=== PATIENT | male | born 1955 | race African-American/Black ===

== ENCOUNTER 2019-09-01 01:43 | Emergency (ER) | payer SELFPAY ==
[~2019-09-01] VITALS: Ht 185.4 cm; Wt 90.0 kg
[2019-09-01 02:00] VITALS: BP 165/94
== END 2019-09-01 07:58 | disposition left against medical advice (07) ==
LOC: EDBD 01:43 → ER 01:43
DX: Z53.21 Procedure and treatment not carried out due to patient leaving prior to being seen by health care provider (principal)

== ENCOUNTER 2023-05-02 01:32 | Emergency (ER) | payer MEDICARE, MEDICAID ==
[~2023-05-02] VITALS: Ht 182.9 cm; Wt 80.0 kg
[~2023-05-02 01:32] MED LIST: AMLO10TA80 PO; LEVE750T66 PO; METF-416 PO; OLAN2.5T29 PO
[2023-05-02 01:34] VITALS: O2SAT 98
[2023-05-02] MEDS ORDERED: LEVETIRACETAM 1000MG PREMIX 100 ML IV ONE (01:45)
[2023-05-02 02:30] LABS: BASOPHILS % 0.6 % (0.0-2.0); EOSINOPHILS % 0.7 % (0.0-5.0); HEMOGLOBIN. 11.9 g/dL (14.0-18.0); LYMPHOCYTES % 24.2 % (20.0-50.0); MEAN CORPUSCULAR HEMOGLOBIN 29.7 pg (28.0-32.0); MEAN CORPUSCULAR VOLUME 84.7 fL (80.0-94.0); MEAN PLATELET VOLUME 7.8 fl (7.4-10.4); MONOCYTES % 6.5 % (2.0-8.0); PLATELET 322 x1000/uL (130-400); RED BLOOD CELL COUNT 4.02 mill/uL (4.7-6.1); RED CELL DISTRIBUTION WIDTH 14.8 % (11.6-14.6); WHITE BLOOD COUNT 7.8 x1000/uL (4.5-11.0)
[2023-05-02 02:37] LABS: INDEX HEMOLYSI 1 (1-3)
[2023-05-02 02:40] LABS: AMMONIA 27 uMol/L (<32); CHLORIDE 108 mEq/L (98-107); INDEX HEMOLYSI 1 (1-3); INDEX ICTERIC 1 (1-4); INDEX LIPEMIC 1 (1-3); POTASSIUM 4.2 mEq/L (3.5-5.1); SODIUM 141 mEq/L (136-145)
[2023-05-02 02:47] LABS: ALANINE AMINOTRANSFERASE 14 IU/L (13-61); ALBUMIN 3.9 g/dL (3.4-5.0); ASPARTATE AMINOTRANSFERASE 10 IU/L (15-37); BILIRUBIN TOTAL 0.4 mg/dL (0.1-1.0); CALCIUM 8.4 mg/dL (8.5-10.1); CARBON DIOXIDE 25 mEq/L (21-32); ETHANOL BLOOD < 10 mg/dL (<10); GLUCOSE 153 mg/dL (70-105); PROTEIN TOTAL 7.1 g/dL (6.0-8.3); UREA NITROGEN BLOOD 17 mg/dL (7-21)
[2023-05-02 11:15] VITALS: BP 135/86; PULSE 98; RESP 18; TEMP 98.4
== END 2023-05-02 11:16 ==
LOC: ER 01:32
DX: G40.509 Epileptic seizures related to external causes, not intractable, without status epilepticus (principal); I10 Essential (primary) hypertension; E11.9 Type 2 diabetes mellitus without complications; Z98.890 Other specified postprocedural states; Z00.00 Encounter for general adult medical examination without abnormal findings
CPT/HCPCS: 80053; 80320; 82140; 85025; 36415; 71045; 70450; 96365; 96366; 99285; J1953; G0480

== ENCOUNTER 2023-05-11 17:21 | Emergency (ER) | payer MEDICARE, MEDICAID ==
[~2023-05-11] VITALS: Ht 182.9 cm; Wt 90.0 kg
[2023-05-11 17:23] VITALS: TEMP 98.6; O2SAT 99
[2023-05-12 15:06] VITALS: BP 142/78; PULSE 82; RESP 16
== END 2023-05-12 15:06 | disposition home or self-care (01) ==
LOC: ER 17:21
DX: S01.81XA Laceration without foreign body of other part of head, initial encounter (principal); F20.9 Schizophrenia, unspecified; X58.XXXA Exposure to other specified factors, initial encounter; Y93.89 Activity, other specified; Y92.89 Other specified places as the place of occurrence of the external cause; Y99.8 Other external cause status
CPT/HCPCS: 12011; 99284

== ENCOUNTER 2024-03-04 06:20 | Emergency (ER) | payer MEDICARE, MEDICAID ==
[~2024-03-04] VITALS: Ht 177.8 cm; Wt 77.0 kg
[~2024-03-04 06:20] MED LIST changes: +FERR325T6 MT; +INSU100V40; +LEVE500T19 MT; -LEVE750T66 PO; +METH-372 MT; +TOPUD PO
[2024-03-04 06:21] VITALS: O2SAT 94
[2024-03-04 07:08] LABS: BASOPHILS % 0.4 % (0.0-2.0); EOSINOPHILS % 0.1 % (0.0-5.0); HEMATOCRIT. 40.4 % (42.0-52.0); HEMOGLOBIN. 13.8 g/dL (14.0-18.0); LYMPHOCYTES % 10.5 % (20.0-50.0); MEAN CORPUSCULAR HEMOGLOBIN 29.4 pg (28.0-32.0); MEAN CORPUSCULAR HGB CONC 34.2 g/dL (31.0-37.0); MEAN CORPUSCULAR VOLUME 86.1 fL (80.0-94.0); MONOCYTES % 4.3 % (2.0-8.0); NEUTROPHILS % 84.7 % (40.0-76.0); PLATELET 296 x1000/uL (130-400); RED BLOOD CELL COUNT 4.69 mill/uL (4.7-6.1); RED CELL DISTRIBUTION WIDTH 15.4 % (11.6-14.6); WHITE BLOOD COUNT 9.4 x1000/uL (4.5-11.0)
[2024-03-04 07:12] LABS: CHLORIDE 106 mEq/L (98-107); POTASSIUM 4.4 mEq/L (3.5-5.1); SODIUM 140 mEq/L (136-145)
[2024-03-04 07:13] LABS: CALCIUM 9.4 mg/dL (8.7-10.4); CARBON DIOXIDE 29 mEq/L (21-32)
[2024-03-04 07:18] LABS: GLUCOSE 170 mg/dL (70-105); TROPONIN I HIGH SENSITIVITY 16 ng/L (3.0-53); UREA NITROGEN BLOOD 15 mg/dL (9-23)
[2024-03-04] MEDS: LEVETIRACETAM 500MG PREMIX 100 ML IV ONE (07:21)
[2024-03-04] MEDS: LORAZEPAM 2MG/ML INJ IV ONE (07:42)
[2024-03-04 09:07] LABS: TROPONIN I HIGH SENSITIVITY 27 ng/L (3.0-53)
[2024-03-04] MEDS ORDERED: LEVE500T19 MT (12:44)
[2024-03-04 17:45] VITALS: BP 144/85; PULSE 90; RESP 15; TEMP 37.05852; O2SAT 98
== END 2024-03-04 17:56 ==
LOC: ER 06:20
DX: G40.909 Epilepsy, unspecified, not intractable, without status epilepticus (principal); J44.9 Chronic obstructive pulmonary disease, unspecified; E11.9 Type 2 diabetes mellitus without complications; I10 Essential (primary) hypertension; F20.9 Schizophrenia, unspecified; Z86.73 Personal history of transient ischemic attack (TIA), and cerebral infarction without residual deficits; Z79.899 Other long term (current) drug therapy
CPT/HCPCS: 99285; 96374; 70450; 71045; 80048; 83880; 85025; 84484; 36415; 93005; 82542; J1953; J2060

== ENCOUNTER 2024-09-19 06:42 | Inpatient (IN) | payer MEDICARE, MEDICAID ==
[~2024-09-19] VITALS: Ht 182.9 cm; Wt 90.3 kg
[~2024-09-19 06:42] MED LIST changes: -OLAN2.5T29 PO; +OLAN2.5T77 PO
[2024-09-19] MEDS: LEVETIRACETAM 500MG PREMIX 100 ML IV ONE ×2 (07:31→07:52)
[2024-09-19 08:07] LABS: BASOPHILS % 0.5 % (0.0-2.0); EOSINOPHILS % 2.1 % (0.0-5.0); HEMATOCRIT. 41.2 % (42.0-52.0); HEMOGLOBIN. 13.8 g/dL (14.0-18.0); LYMPHOCYTES % 22.6 % (20.0-50.0); MEAN CORPUSCULAR HEMOGLOBIN 28.4 pg (28.0-32.0); MEAN CORPUSCULAR HGB CONC 33.5 g/dL (31.0-37.0); MEAN CORPUSCULAR VOLUME 84.6 fL (80.0-94.0); MEAN PLATELET VOLUME 8.1 fl (7.4-10.4); MONOCYTES % 4.9 % (2.0-8.0); NEUTROPHILS % 69.9 % (40.0-76.0); PLATELET 278 x1000/uL (130-400); RED BLOOD CELL COUNT 4.87 mill/uL (4.7-6.1); RED CELL DISTRIBUTION WIDTH 14.8 % (11.6-14.6)
[2024-09-19 08:30] LABS: CHLORIDE 106 mEq/L (98-107); POTASSIUM 4.2 mEq/L (3.5-5.1); SODIUM 140 mEq/L (136-145)
[2024-09-19 08:31] LABS: CALCIUM 8.9 mg/dL (8.7-10.4); CARBON DIOXIDE 24 mEq/L (21-32)
[2024-09-19 08:36] LABS: CREATININE 1.1 mg/dL (0.6-1.3); GLUCOSE 175 mg/dL (70-105); UREA NITROGEN BLOOD 18 mg/dL (9-23)
[2024-09-19 08:38] LABS: ALANINE AMINOTRANSFERASE 12 IU/L (10-49); ASPARTATE AMINOTRANSFERASE 17 IU/L (<34); BILIRUBIN TOTAL 0.5 mg/dL (0.1-1.0); PROTEIN TOTAL 7.3 g/dL (6.0-8.3)
[2024-09-19 10:00] VITALS: BP 170/87; PULSE 93; RESP 18; TEMP 36.5
[2024-09-19] MEDS: LORAZEPAM 2MG/ML INJ IV NR (11:24)
[2024-09-19] MEDS ORDERED: NALOXONE HCL 0.4MG/ML VIAL IV PRN (11:45)
[2024-09-19] MEDS ORDERED: CLONIDINE 0.1MG TABLET PO PRN (11:45)
[2024-09-19] MEDS ORDERED: DEXTROSE 50% WATER 50ML SYRINGE IV PRN (11:45)
[2024-09-19] MEDS ORDERED: ACETAMINOPHEN 325MG TABLET PO PRN (11:45)
[2024-09-19] MEDS ORDERED: HYDROCODONE/ACETAMINOPHEN 5/325MG TABLET PO PRN (11:45)
[2024-09-19] MEDS ORDERED: ONDANSETRON HCL 4MG/2ML INJ IV PRN (11:45)
[2024-09-19] MEDS: METHIMAZOLE 5MG TABLET PO SCH (11:45)
[2024-09-19] MEDS: ENOXAPARIN 40MG/0.4ML SYR SUBCUT SCH (12:00)
[2024-09-19] MEDS: BLOOD SUGAR DIAGNOSTIC STRIP TEST SCH (12:40)
[2024-09-19] MEDS: INSULIN LISPRO 100 UNITS/ML SUBCUT SCH (13:10)
[2024-09-19 20:00] VITALS: BP 122/63; PULSE 85; RESP 20; TEMP 37.2; O2SAT 100
[2024-09-19] MEDS: LEVETIRACETAM 500MG TABLET PO SCH (22:20)
[2024-09-19] MEDS: METOPROLOL TARTRATE 25MG TABLET PO SCH (22:21)
[2024-09-19] MEDS: OLANZAPINE 2.5MG TABLET PO SCH (22:21)
[2024-09-20] VITALS: BP 146/73; PULSE 80; RESP 20; TEMP 36.9; O2SAT 100
[2024-09-20] MEDS: LORAZEPAM 2MG/ML INJ IV PRN (02:07)
[2024-09-20 04:00] VITALS: BP 142/78; PULSE 68; RESP 20; TEMP 36.6; O2SAT 100
[2024-09-20 06:53] LABS: CARBON DIOXIDE 25 mEq/L (21-32); CHLORIDE 107 mEq/L (98-107); POTASSIUM 3.8 mEq/L (3.5-5.1); SODIUM 141 mEq/L (136-145)
[2024-09-20 06:55] LABS: BASOPHILS % 0.8 % (0.0-2.0); EOSINOPHILS % 2.1 % (0.0-5.0); HEMATOCRIT. 37.2 % (42.0-52.0); HEMOGLOBIN. 12.8 g/dL (14.0-18.0); LYMPHOCYTES % 30.6 % (20.0-50.0); MEAN CORPUSCULAR HEMOGLOBIN 28.6 pg (28.0-32.0); MEAN CORPUSCULAR HGB CONC 34.4 g/dL (31.0-37.0); MEAN PLATELET VOLUME 8.2 fl (7.4-10.4); MONOCYTES % 8.4 % (2.0-8.0); NEUTROPHILS % 58.1 % (40.0-76.0); PLATELET 257 x1000/uL (130-400); RED BLOOD CELL COUNT 4.48 mill/uL (4.7-6.1); RED CELL DISTRIBUTION WIDTH 14.8 % (11.6-14.6); WHITE BLOOD COUNT 8.2 x1000/uL (4.5-11.0)
[2024-09-20 06:59] LABS: CREATININE 1.2 mg/dL (0.6-1.3); GLUCOSE 105 mg/dL (70-105); UREA NITROGEN BLOOD 22 mg/dL (9-23)
[2024-09-20] MEDS: AMLODIPINE 10MG TABLET PO SCH (10:50)
[2024-09-20] MEDS: PANTOPRAZOLE SODIUM 40 MG/VIAL IV SCH (10:51)
[2024-09-20 12:00] VITALS: BP 139/78; PULSE 78; RESP 20; TEMP 36.5; O2SAT 100
[2024-09-20 16:00] VITALS: BP 130/67; PULSE 81; RESP 18; TEMP 36.6; O2SAT 100
[2024-09-20 20:00] VITALS: BP 107/51; PULSE 72; RESP 20; TEMP 36.1; O2SAT 98
[2024-09-21 08:00] VITALS: BP 172/86; PULSE 114; RESP 16; TEMP 36; O2SAT 97
[2024-09-21 08:51] LABS: BASOPHILS % 1.1 % (0.0-2.0); HEMATOCRIT. 39.3 % (42.0-52.0); HEMOGLOBIN. 13.3 g/dL (14.0-18.0); LYMPHOCYTES % 37.9 % (20.0-50.0); MEAN CORPUSCULAR HEMOGLOBIN 28.6 pg (28.0-32.0); MEAN CORPUSCULAR HGB CONC 33.7 g/dL (31.0-37.0); MEAN CORPUSCULAR VOLUME 84.9 fL (80.0-94.0); PLATELET 260 x1000/uL (130-400); RED BLOOD CELL COUNT 4.63 mill/uL (4.7-6.1); RED CELL DISTRIBUTION WIDTH 14.8 % (11.6-14.6); WHITE BLOOD COUNT 5.2 x1000/uL (4.5-11.0)
[2024-09-21 08:57] LABS: CARBON DIOXIDE 26 mEq/L (21-32); CHLORIDE 108 mEq/L (98-107); POTASSIUM 4.1 mEq/L (3.5-5.1); SODIUM 142 mEq/L (136-145)
[2024-09-21 08:58] LABS: CALCIUM 9.1 mg/dL (8.7-10.4)
[2024-09-21 09:02] LABS: CREATININE 1.1 mg/dL (0.6-1.3)
[2024-09-21 09:03] LABS: GLUCOSE 152 mg/dL (70-105); UREA NITROGEN BLOOD 20 mg/dL (9-23)
[2024-09-21 12:00] VITALS: BP 153/81; PULSE 105; RESP 18; TEMP 36.4; O2SAT 98
[2024-09-21 16:00] VITALS: BP 138/74; PULSE 90; RESP 17; TEMP 36.3; O2SAT 98
[2024-09-22] VITALS: BP 124/71; PULSE 72; RESP 19; TEMP 36.2; O2SAT 97
[2024-09-22 04:00] VITALS: BP 128/68; PULSE 66; RESP 20; TEMP 36.2; O2SAT 96
[2024-09-22 08:14] VITALS: BP 86/52; PULSE 69; RESP 19; TEMP 36.7; O2SAT 99
[2024-09-22 09:57] LABS: BASOPHILS % 0.5 % (0.0-2.0); EOSINOPHILS % 6.3 % (0.0-5.0); HEMATOCRIT. 38.6 % (42.0-52.0); LYMPHOCYTES % 33.5 % (20.0-50.0); MEAN CORPUSCULAR HEMOGLOBIN 28.2 pg (28.0-32.0); MEAN CORPUSCULAR HGB CONC 33.7 g/dL (31.0-37.0); MEAN CORPUSCULAR VOLUME 83.6 fL (80.0-94.0); MEAN PLATELET VOLUME 8.1 fl (7.4-10.4); MONOCYTES % 8.8 % (2.0-8.0); NEUTROPHILS % 50.9 % (40.0-76.0); PLATELET 265 x1000/uL (130-400); RED BLOOD CELL COUNT 4.62 mill/uL (4.7-6.1); RED CELL DISTRIBUTION WIDTH 14.6 % (11.6-14.6)
[2024-09-22 10:09] LABS: CARBON DIOXIDE 28 mEq/L (21-32); CHLORIDE 107 mEq/L (98-107); POTASSIUM 4.1 mEq/L (3.5-5.1); SODIUM 143 mEq/L (136-145)
[2024-09-22 10:10] LABS: CALCIUM 9.2 mg/dL (8.7-10.4)
[2024-09-22 10:15] LABS: CREATININE 1.2 mg/dL (0.6-1.3); GLUCOSE 124 mg/dL (70-105); UREA NITROGEN BLOOD 24 mg/dL (9-23)
[2024-09-22 12:04] VITALS: BP 136/77; PULSE 69; RESP 19; TEMP 36.4; O2SAT 99
[2024-09-22] MEDS ORDERED: METO25TA6 PO (14:36)
[2024-09-22 16:05] VITALS: BP 155/77; PULSE 78; RESP 18; TEMP 36.3; O2SAT 99
[2024-09-22 16:42] VITALS: BP 136/68; PULSE 78; TEMP 97.6; O2SAT 98
[2024-09-22] MEDS ORDERED: METOPROLOL TARTRATE 25MG TABLET PO SCH (21:00)
== END 2024-09-22 19:18 | DRG 100 ==
LOC: ER 06:42 → 7WST 08:33 → EDBEDREQTM 08:34 → EDBEDREQ 08:34
PROVIDERS: ADMIT Internal Medicine; ATTEND Internal Medicine
DX: G40.89 Other seizures (principal); G92.8 Other toxic encephalopathy; E78.5 Hyperlipidemia, unspecified; E11.9 Type 2 diabetes mellitus without complications; I10 Essential (primary) hypertension; E03.9 Hypothyroidism, unspecified; R45.1 Restlessness and agitation; F03.90 Unspecified dementia, unspecified severity, without behavioral disturbance, psychotic disturbance, mood disturbance, and anxiety; Z82.49 Family history of ischemic heart disease and other diseases of the circulatory system
CPT/HCPCS: 36415; 80048; 80053; 82962; 83036; 85025; 93005; 93306; 93970; 99285; J1650; J1815; J1953; J2060; J2470

== ENCOUNTER 2025-03-14 20:54 | Emergency (ER) | payer MEDICARE, MEDICAID ==
[~2025-03-14] VITALS: Ht 182.9 cm; Wt 95.0 kg
[~2025-03-14 20:54] MED LIST changes: +METO25TA6 PO
[2025-03-14 21:14] VITALS: TEMP 36.9; O2SAT 99
[2025-03-14 21:56] VITALS: BP 165/85; PULSE 77; RESP 16; O2SAT 100
[2025-03-14 23:56] LABS: BASOPHILS % 0.5 % (0.0-2.0); EOSINOPHILS % 3.0 % (0.0-5.0); HEMATOCRIT. 28.6 % (42.0-52.0); HEMOGLOBIN. 9.2 g/dL (14.0-18.0); LYMPHOCYTES % 24.2 % (20.0-50.0); MEAN PLATELET VOLUME 6.6 fl (7.4-10.4); MONOCYTES % 14.3 % (2.0-8.0); NEUTROPHILS % 58.0 % (40.0-76.0); PLATELET 321 x1000/uL (130-400); RED BLOOD CELL COUNT 3.57 mill/uL (4.7-6.1); RED CELL DISTRIBUTION WIDTH 17.0 % (11.6-14.6)
[2025-03-15 00:04] LABS: CREATININE 1.3 mg/dL (0.6-1.3); UREA NITROGEN BLOOD 13 mg/dL (9-23)
[2025-03-15 00:05] LABS: TROPONIN I HIGH SENSITIVITY 9 ng/L (3.0-53)
== END 2025-03-15 03:40 ==
LOC: ER 20:54
DX: R56.9 Unspecified convulsions (principal); G93.40 Encephalopathy, unspecified; F03.93 Unspecified dementia, unspecified severity, with mood disturbance; F20.9 Schizophrenia, unspecified; E11.9 Type 2 diabetes mellitus without complications; I11.9 Hypertensive heart disease without heart failure; F31.9 Bipolar disorder, unspecified; Z79.84 Long term (current) use of oral hypoglycemic drugs; W19.XXXA Unspecified fall, initial encounter; Y93.89 Activity, other specified; Y92.89 Other specified places as the place of occurrence of the external cause; Y99.8 Other external cause status
CPT/HCPCS: 36415; 71045; 72170; 80048; 84484; 85025; 93005; 99291; A4606

== ENCOUNTER 2025-05-12 08:26 | Inpatient (IN) | payer MEDICARE, MEDICAID ==
[~2025-05-12] VITALS: Ht 182.9 cm; Wt 99.8 kg
[2025-05-12] MEDS ORDERED: CEFTRIAXONE 1GM/50ML 50 ML IV ONE (08:45)
[2025-05-12] MEDS: SODIUM CHLORIDE 0.9% (SEPSIS BOLUS) IV ONE (09:11)
[2025-05-12] MEDS ORDERED: PIPERACILLIN/TAZO 3.375G/50ML 50 ML IV ONE (09:13)
[2025-05-12] MEDS: VANCOMYCIN 1G PREMIX 200 ML IV ONE (09:18)
[2025-05-12] MEDS: VANCOMYCIN 1G PREMIX 200 ML IV SCH ×2 (09:19→22:43)
[2025-05-12] MEDS: ACETAMINOPHEN 1000MG/100ML 100 ML IV ONE (09:31)
[2025-05-12 09:59] LABS: HEMATOCRIT. 25.2 % (42.0-52.0); HEMOGLOBIN. 7.9 g/dL (14.0-18.0); MEAN PLATELET VOLUME 8.5 fl (7.4-10.4); PLATELET 531 x1000/uL (130-400); RED BLOOD CELL COUNT 3.35 mill/uL (4.7-6.1); RED CELL DISTRIBUTION WIDTH 19.1 % (11.6-14.6)
[2025-05-12 10:12] LABS: INR 1.3
[2025-05-12 10:18] LABS: TROPONIN I HIGH SENSITIVITY 32 ng/L (3.0-53); UREA NITROGEN BLOOD 76 mg/dL (9-23)
[2025-05-12 10:20] LABS: ASPARTATE AMINOTRANSFERASE 24 IU/L (<34); BILIRUBIN DIRECT 1.0 mg/dL (<=3.0); BILIRUBIN TOTAL 1.3 mg/dL (0.1-1.0); PROTEIN TOTAL 7.9 g/dL (6.0-8.3)
[2025-05-12] MEDS ORDERED: IPRATROPIUM/ALBUTEROL 0.5-3(2.5)MG/3ML NEB HHN PRN (10:30)
[2025-05-12] MEDS ORDERED: POTASSIUM CHLORIDE 40 MEQ in DEXT 5% WATER 230 ML IV ONE (10:30)
[2025-05-12] MEDS ORDERED: ACETAMINOPHEN 325MG TABLET PO PRN (10:30)
[2025-05-12] MEDS ORDERED: SODIUM CHLORIDE 0.9% 1,000 ML IV SCH (10:30)
[2025-05-12] MEDS ORDERED: ONDANSETRON HCL 4MG/2ML INJ IV PRN (10:30)
[2025-05-12 10:38] LABS: CREATININE 2.3 mg/dL (0.6-1.3)
[2025-05-12] MEDS ORDERED: LEVETIRACETAM 500MG TABLET PO SCH (11:00)
[2025-05-12] MEDS ORDERED: AMLODIPINE 10MG TABLET PO SCH (11:00)
[2025-05-12] MEDS ORDERED: SODIUM CHLORIDE 0.45% 1,000 ML IV NR (11:00)
[2025-05-12] MEDS: PIPERACILLIN/TAZO 3.375G/50ML 50 ML IV SCH ×2 (11:36→22:02)
[2025-05-12] MEDS: KCL 20MEQ/100ML X 2 FOR TOTAL KCL 40MEQ/200ML IV SCH (11:37)
[2025-05-12 11:41] LABS: TROPONIN I HIGH SENSITIVITY 29 ng/L (3.0-53)
[2025-05-12 12:13] LABS: BG BASE EXCESS -3.2 mmol/L (-2.0-3.0); BG CARBOXYHEMOGLOBIN 0.5 % (0.5-1.5); BG DEOXYHEMOGLOBIN 6.1 % (0.0-5.0); BG FRACTION INSPIRED OXYGEN 21; BG HCO3 ACT 20.5 mmol/L (21.0-28.0); BG METHEMOGLOBIN 0.3 % (0.5-1.5); BG OXYGEN SATURATION 93.9 % (94.0-98.0); BG OXYHEMOGLOBIN 93.1 % (94.0-98.0); BG PCO2 31.1 mmHg (35.0-48.0); BG PH 7.436 (7.350-7.450); BG PO2 73.3 mmHg (83.0-108.0); BG SAMPLE SITE LEFT RADIAL; BG TOTAL HEMOGLOBIN 8.0 g/dL (13.5-17.5); BG VENT MODE ROOM AIR
[2025-05-12] MEDS ORDERED: LORAZEPAM 1MG TABLET PO PRN (13:00)
[2025-05-12] MEDS ORDERED: PIPERACILLIN/TAZO 3.375G/50ML 50 ML IV SCH (14:00)
[2025-05-12] MEDS ORDERED: CLINDAMYCIN 300 MG in DEXTROSE 5% WATER 50 ML IV SCH (14:00)
[2025-05-12] MEDS: LEVETIRACETAM 1000MG PREMIX 100 ML IV SCH (16:06)
[2025-05-12] MEDS: CLINDAMYCIN 600MG PREMIX 50 ML IV SCH (16:06)
[2025-05-12] MEDS: DEXT 5%/0.9% NACL 1,000 ML IV SCH (16:09)
[2025-05-12] MEDS: PANTOPRAZOLE SODIUM 40 MG/VIAL IV SCH (16:09)
[2025-05-12] MEDS: ENOXAPARIN 30MG/0.3ML SYR SUBCUT SCH (16:09)
[2025-05-12 17:40] LABS: CREATININE 2.1 mg/dL (0.6-1.3); UREA NITROGEN BLOOD 74 mg/dL (9-23)
[2025-05-12 17:41] LABS: TROPONIN I HIGH SENSITIVITY 24 ng/L (3.0-53)
[2025-05-12 18:06] LABS: C REACTIVE PROTEIN HIGH SENS > 200.00 mg/l (<1.00)
[2025-05-12 20:00] VITALS: BP_SYST 100; BP_SYST 139; BP_DIAS 73; BP_DIAS 78; PULSE 90; PULSE 98; RESP 18; TEMP 36.418; TEMP 36.5; O2SAT 98
[2025-05-12] MEDS: DEXT 5%/0.45% NACL 1000ML 1,000 ML IV SCH (20:54)
[2025-05-12] MEDS: BLOOD SUGAR DIAGNOSTIC STRIP TEST SCH (20:54)
[2025-05-12] MEDS ORDERED: LEVETIRACETAM 1,000MG in NACL 100ML PREMIX IV SCH (21:00)
[2025-05-12] MEDS ORDERED: VANCOMYCIN 500MG PREMIX 100 ML IV SCH (21:00)
[2025-05-12] MEDS ORDERED: METOPROLOL TARTRATE 25MG TABLET PO SCH (21:00)
[2025-05-12] MEDS ORDERED: OLANZAPINE 2.5MG TABLET PO SCH (21:00)
[2025-05-12] MEDS: INSULIN LISPRO 100 UNITS/ML SUBCUT SCH (21:07)
[2025-05-12 21:34] LABS: BAND% 4.0 % (1.0-6.0); LYMPHOCYTES % MANUAL 4.0 % (20.0-50.0); MONOCYTES % MANUAL 2.0 % (2.0-8.0); MYELOCYTES % 1.0 % (0-0); NEUTROPHILS % MANUAL 89.0 % (45.0-75.0); PLATELET ESTIMATE MARKEDLY INCREASED
[2025-05-12] MEDS: SODIUM HYPOCHLORITE 0.125% 473ML SOLUTION TOP SCH (22:42)
[2025-05-12 23:45] LABS: CLARITY URINE CLOUDY (CLEAR); COLOR URINE DARK YELLOW (YELLOW); GLUCOSE URINE NEGATIVE (NEGATIVE); KETONES URINE TRACE (NEGATIVE); LEUKOCYTE ESTERASE URINE NEGATIVE (NEGATIVE); NITRITE URINE NEGATIVE (NEGATIVE); OCCULT BLOOD URINE 2+ (NEGATIVE); PH URINE 5.0 (4.5-8.0); PROTEIN URINE 2+ (NEGATIVE); SPECIFIC GRAVITY URINE 1.021 (1.005-1.030); UROBILINOGEN URINE 2.0 E.U./dL (0.2-1.0)
[2025-05-12 23:49] LABS: TROPONIN I HIGH SENSITIVITY 18 ng/L (3.0-53)
[2025-05-13] VITALS: BP 98/52; PULSE 75; RESP 18; TEMP 36.7; O2SAT 97
[2025-05-13 00:01] LABS: *AMPHETAMINES SCREEN URINE NEGATIVE (NEGATIVE); *BARBITURATES SCREEN URINE NEGATIVE (NEGATIVE); *BENZODIAZEPINES SCREEN URINE NEGATIVE (NEGATIVE); *COCAINE SCREEN URINE NEGATIVE (NEGATIVE); CANNABINOID URINE SCREEN NEGATIVE (NEGATIVE); ECSTASY MDMA SCREEN URINE NEGATIVE (NEGATIVE); METHADONE URINE SCREEN NEGATIVE (NEGATIVE); OPIATES URINE SCREEN NEGATIVE (NEGATIVE); PHENCYCLIDINE URINE SCREEN NEGATIVE (NEGATIVE)
[2025-05-13 00:57] LABS: BACTERIA URINE 1+; SQUAMOUS EPITHELIAL CELL URINE 1+ /lpf (RARE/1+); WBC URINE 0-2 /hpf (0-2)
[2025-05-13 00:58] LABS: AMORPHOUS SEDIMENT URINE 2+ /lpf
[2025-05-13 04:00] VITALS: BP 119/65; PULSE 82; RESP 18; TEMP 36.9; O2SAT 100
[2025-05-13 04:01] LABS: HEMATOCRIT. 24.1 % (42.0-52.0); HEMOGLOBIN. 7.4 g/dL (14.0-18.0); MEAN PLATELET VOLUME 9.1 fl (7.4-10.4); PLATELET 406 x1000/uL (130-400); RED BLOOD CELL COUNT 3.08 mill/uL (4.7-6.1); RED CELL DISTRIBUTION WIDTH 19.3 % (11.6-14.6)
[2025-05-13 04:12] LABS: INR 1.4
[2025-05-13 04:17] LABS: CREATININE 2.0 mg/dL (0.6-1.3)
[2025-05-13 04:18] LABS: UREA NITROGEN BLOOD 53 mg/dL (9-23)
[2025-05-13 04:20] LABS: PHOSPHORUS 4.1 mg/dL (2.5-4.9)
[2025-05-13 05:16] LABS: LYMPHOCYTES % MANUAL 8.0 % (20.0-50.0); MONOCYTES % MANUAL 4.0 % (2.0-8.0); NEUTROPHILS % MANUAL 88.0 % (45.0-75.0); PLATELET ESTIMATE NORMAL
[2025-05-13 08:00] VITALS: BP 139/86; PULSE 91; RESP 18; TEMP 36.3; O2SAT 100
[2025-05-13] MEDS ORDERED: PIPERACILLIN/TAZO 3.375G/50ML 50 ML IV SCH (09:00)
[2025-05-13 12:00] VITALS: BP 129/87; PULSE 86; RESP 18; TEMP 36.3; O2SAT 95
[2025-05-13 16:00] VITALS: BP 129/69; PULSE 87; RESP 18; TEMP 36.3; O2SAT 95
[2025-05-13 20:00] VITALS: BP 126/62; PULSE 85; RESP 18; TEMP 36.9; O2SAT 98
[2025-05-14] VITALS (11 sets, daily range): BP systolic 125–173; BP diastolic 62–81; PULSE 54–90; RESP 16–20; TEMP 35.78064–37; O2SAT 92–100
[2025-05-14 06:48] LABS: CREATININE 1.9 mg/dL (0.6-1.3); UREA NITROGEN BLOOD 69.0 mg/dL (9-23)
[2025-05-14] MEDS: VANCOMYCIN 1GM PMX (XELLIA) 200 ML IV SCH (11:16)
[2025-05-14] MEDS: DEXTROSE 5% WATER 1,000 ML IV SCH (11:22)
[2025-05-14] MEDS ORDERED: LIDOCAINE HCL/EPINEPHRINE 1%-EPI 1:100,000 20ML VIAL ONE (14:27)
[2025-05-14] MEDS ORDERED: POLYMYXIN B SULFATE 500000 UNITS/VIAL ONE (14:27)
[2025-05-14] MEDS ORDERED: BUPIVACAINE HCL/PF 0.5% (5MG/ML) 10ML ONE (14:28)
[2025-05-14 15:57] LABS: HEMATOCRIT. 26.5 % (42.0-52.0); HEMOGLOBIN. 8.2 g/dL (14.0-18.0); MEAN PLATELET VOLUME 8.8 fl (7.4-10.4); PLATELET 483 x1000/uL (130-400); RED BLOOD CELL COUNT 3.41 mill/uL (4.7-6.1); RED CELL DISTRIBUTION WIDTH 20.8 % (11.6-14.6)
[2025-05-14 16:14] LABS: CREATININE 1.8 mg/dL (0.6-1.3)
[2025-05-14 16:15] LABS: UREA NITROGEN BLOOD 61.0 mg/dL (9-23)
[2025-05-14 16:41] LABS: BAND% 3.0 % (1.0-6.0); EOSINOPHILS % MANUAL 1.0 % (0.0-5.0); LYMPHOCYTES % MANUAL 3.0 % (20.0-50.0); MONOCYTES % MANUAL 4.0 % (2.0-8.0); NEUTROPHILS % MANUAL 89.0 % (45.0-75.0); PLATELET ESTIMATE INCREASED
[2025-05-14] MEDS ORDERED: ONDANSETRON HCL 4MG/2ML INJ ONE (18:05)
[2025-05-14] MEDS ORDERED: PROPOFOL 200MG/20ML VIAL IV ONE (18:05)
[2025-05-14] MEDS ORDERED: DEXAMETHASONE 4MG/ML 1ML VIAL ONE (18:05)
[2025-05-14] MEDS ORDERED: FENTANYL CITRATE/PF 50MCG/ML 2ML VIAL ONE (18:06)
[2025-05-14] MEDS ORDERED: ONDANSETRON HCL 4MG/2ML INJ IV PRN (18:30)
[2025-05-14] MEDS ORDERED: LABETALOL 5MG/ML 4ML INJ IV PRN (18:30)
[2025-05-14] MEDS ORDERED: HYDRALAZINE 20MG/ML VIAL IV PRN (18:30)
[2025-05-14] MEDS ORDERED: HYDROMORPHONE HCL/PF 1MG/ML INJ IV PRN (18:30)
[2025-05-14] MEDS ORDERED: FENTANYL CITRATE/PF 50MCG/ML 2ML VIAL IV PRN (18:30)
[2025-05-14] MEDS ORDERED: ALBUTEROL (0.5%) 2.5MG/0.5ML NEB HHN NR (18:30)
[2025-05-14] MEDS ORDERED: PHENYLEPHRINE HCL 10MG/ML 1ML IV ONE (19:41)
[2025-05-15] VITALS (7 sets, daily range): BP systolic 124–150; BP diastolic 65–72; PULSE 72–105; RESP 17–20; TEMP 36.3–36.6; O2SAT 97–100
[2025-05-15] MEDS: HYDROMORPHONE HCL/PF 1MG/ML INJ IV PRN (06:37)
[2025-05-15 16:38] LABS: HEMATOCRIT. 25.3 % (42.0-52.0); HEMOGLOBIN. 7.9 g/dL (14.0-18.0); MEAN PLATELET VOLUME 8.7 fl (7.4-10.4); PLATELET 417 x1000/uL (130-400); RED BLOOD CELL COUNT 3.25 mill/uL (4.7-6.1); RED CELL DISTRIBUTION WIDTH 20.7 % (11.6-14.6)
[2025-05-15] MEDS: IPRATROPIUM/ALBUTEROL 0.5-3(2.5)MG/3ML NEB HHN SCH (21:22)
[2025-05-15 23:40] LABS: BAND% 2.0 % (1.0-6.0); EOSINOPHILS % MANUAL 1.0 % (0.0-5.0); LYMPHOCYTES % MANUAL 7.0 % (20.0-50.0); MONOCYTES % MANUAL 6.0 % (2.0-8.0); NEUTROPHILS % MANUAL 84.0 % (45.0-75.0); PLATELET ESTIMATE INCREASED
[2025-05-16] VITALS (10 sets, daily range): BP systolic 133–172; BP diastolic 69–97; PULSE 78–120; RESP 15–22; TEMP 36.6–37; O2SAT 98
[2025-05-16] MEDS: INSULIN GLARGINE 100 UNITS/ML SUBCUT SCH (23:08)
[2025-05-17] VITALS (9 sets, daily range): BP systolic 138–166; BP diastolic 75–97; PULSE 87–106; RESP 14–20; TEMP 36.5–36.7; O2SAT 95–100
[2025-05-17 06:15] LABS: HEMATOCRIT. 28.0 % (42.0-52.0); HEMOGLOBIN. 9.1 g/dL (14.0-18.0); MEAN PLATELET VOLUME 8.6 fl (7.4-10.4); PLATELET 430 x1000/uL (130-400); RED BLOOD CELL COUNT 3.63 mill/uL (4.7-6.1); RED CELL DISTRIBUTION WIDTH 21.2 % (11.6-14.6)
[2025-05-17 06:16] LABS: CREATININE 1.7 mg/dL (0.6-1.3); UREA NITROGEN BLOOD 40.0 mg/dL (9-23)
[2025-05-17 22:34] LABS: BAND% 3.0 % (1.0-6.0); LYMPHOCYTES % MANUAL 10.0 % (20.0-50.0); MONOCYTES % MANUAL 6.0 % (2.0-8.0); NEUTROPHILS % MANUAL 81.0 % (45.0-75.0); PLATELET ESTIMATE NORMAL
[2025-05-18] VITALS (9 sets, daily range): BP systolic 126–156; BP diastolic 61–83; PULSE 77–99; RESP 17–20; TEMP 36.4–37; O2SAT 97–100
[2025-05-18 06:23] LABS: CREATININE 2.1 mg/dL (0.6-1.3)
[2025-05-18 06:24] LABS: UREA NITROGEN BLOOD 42.0 mg/dL (9-23)
[2025-05-18 06:27] LABS: BASOPHILS % 0.3 % (0.0-2.0); EOSINOPHILS % 1.2 % (0.0-5.0); HEMATOCRIT. 24.3 % (42.0-52.0); HEMOGLOBIN. 7.8 g/dL (14.0-18.0); LYMPHOCYTES % 10.7 % (20.0-50.0); MEAN PLATELET VOLUME 8.8 fl (7.4-10.4); MONOCYTES % 5.4 % (2.0-8.0); NEUTROPHILS % 82.4 % (40.0-76.0); PLATELET 356 x1000/uL (130-400); RED BLOOD CELL COUNT 3.12 mill/uL (4.7-6.1); RED CELL DISTRIBUTION WIDTH 21.8 % (11.6-14.6)
[2025-05-18] MEDS: POTASSIUM CHLORIDE 20MEQ TABLET SR PO SCH (08:53)
[2025-05-19] VITALS (10 sets, daily range): BP systolic 117–148; BP diastolic 64–75; PULSE 72–90; RESP 18–20; TEMP 36–37.2; O2SAT 96–100
[2025-05-19 09:54] LABS: BASOPHILS % 0.3 % (0.0-2.0); EOSINOPHILS % 1.7 % (0.0-5.0); HEMATOCRIT. 22.7 % (42.0-52.0); HEMOGLOBIN. 7.3 g/dL (14.0-18.0); LYMPHOCYTES % 10.6 % (20.0-50.0); MEAN PLATELET VOLUME 9.1 fl (7.4-10.4); MONOCYTES % 5.6 % (2.0-8.0); NEUTROPHILS % 81.8 % (40.0-76.0); PLATELET 365 x1000/uL (130-400); RED BLOOD CELL COUNT 2.92 mill/uL (4.7-6.1); RED CELL DISTRIBUTION WIDTH 21.1 % (11.6-14.6)
[2025-05-19 10:19] LABS: CREATININE 1.6 mg/dL (0.6-1.3); UREA NITROGEN BLOOD 30.0 mg/dL (9-23)
[2025-05-20] VITALS (7 sets, daily range): BP systolic 141–154; BP diastolic 69–98; PULSE 80–89; RESP 18–20; TEMP 36.4–36.7; O2SAT 97–100
[2025-05-20] MEDS: DEXTROSE 50% WATER 50ML SYRINGE IV PRN (07:35)
[2025-05-21] VITALS (7 sets, daily range): BP systolic 131–143; BP diastolic 67–75; PULSE 81–84; RESP 18; TEMP 36.5–37.1; O2SAT 97–100
[2025-05-21 19:22] LABS: BASOPHILS % 0.5 % (0.0-2.0); EOSINOPHILS % 1.5 % (0.0-5.0); LYMPHOCYTES % 17.6 % (20.0-50.0); MEAN PLATELET VOLUME 8.8 fl (7.4-10.4); MONOCYTES % 6.1 % (2.0-8.0); NEUTROPHILS % 74.3 % (40.0-76.0); PLATELET 343 x1000/uL (130-400); RED BLOOD CELL COUNT 2.69 mill/uL (4.7-6.1); RED CELL DISTRIBUTION WIDTH 21.4 % (11.6-14.6)
[2025-05-21 19:41] LABS: CREATININE 1.0 mg/dL (0.6-1.3); UREA NITROGEN BLOOD 14 mg/dL (9-23)
[2025-05-21 20:06] LABS: HEMATOCRIT. 20.9 % (42.0-52.0); HEMOGLOBIN. 6.6 g/dL (14.0-18.0)
[2025-05-22] VITALS (11 sets, daily range): BP systolic 119–151; BP diastolic 64–87; PULSE 73–88; RESP 18–20; TEMP 36.16956–36.9; O2SAT 96–100
[2025-05-22 09:49] LABS: BASOPHILS % 0.7 % (0.0-2.0); EOSINOPHILS % 1.2 % (0.0-5.0); HEMATOCRIT. 25.0 % (42.0-52.0); HEMOGLOBIN. 8.2 g/dL (14.0-18.0); LYMPHOCYTES % 19.7 % (20.0-50.0); MEAN PLATELET VOLUME 8.5 fl (7.4-10.4); MONOCYTES % 6.6 % (2.0-8.0); NEUTROPHILS % 71.8 % (40.0-76.0); PLATELET 374 x1000/uL (130-400); RED BLOOD CELL COUNT 3.20 mill/uL (4.7-6.1); RED CELL DISTRIBUTION WIDTH 21.0 % (11.6-14.6)
[2025-05-22 09:58] LABS: CREATININE 0.9 mg/dL (0.6-1.3)
[2025-05-22 09:59] LABS: UREA NITROGEN BLOOD 14 mg/dL (9-23)
[2025-05-23 04:00] VITALS: BP 170/83; PULSE 86; RESP 18; TEMP 36.9; O2SAT 97
[2025-05-23] MEDS: CLONIDINE 0.1MG TABLET PO PRN (04:57)
[2025-05-23 06:00] VITALS: BP 139/72
[2025-05-23 08:45] VITALS: BP 154/82; PULSE 85; RESP 18; TEMP 37.4; O2SAT 96
[2025-05-23 11:59] VITALS: BP 142/70; PULSE 86; RESP 18; TEMP 36.6; O2SAT 98
[2025-05-23 16:14] VITALS: BP 137/68; PULSE 89; RESP 20; TEMP 36.7; O2SAT 97
[2025-05-23 20:00] VITALS: BP 153/82; PULSE 84; RESP 18; TEMP 37.4; O2SAT 98
[2025-05-24] VITALS: BP 144/82; PULSE 86; RESP 20; TEMP 37.1; O2SAT 98
[2025-05-24 04:00] VITALS: BP 164/83; PULSE 75; RESP 20; TEMP 36.7; O2SAT 97
[2025-05-24 08:27] VITALS: BP 145/75; PULSE 77; RESP 18; TEMP 36.2; O2SAT 98
[2025-05-24 12:04] VITALS: BP 137/72; PULSE 79; RESP 18; TEMP 36.6; O2SAT 98
[2025-05-24 16:00] VITALS: BP 149/74; PULSE 80; RESP 18; TEMP 36.6; O2SAT 98
[2025-05-24 20:00] VITALS: BP 152/77; PULSE 75; RESP 20; TEMP 37.2; O2SAT 98
[2025-05-24] MEDS: ACETAMINOPHEN 325MG TABLET PO PRN (23:08)
[2025-05-25] VITALS (7 sets, daily range): BP systolic 129–153; BP diastolic 62–86; PULSE 74–86; RESP 18–20; TEMP 36.6–37; O2SAT 97–100
[2025-05-26] VITALS: BP 121/56; PULSE 82; RESP 18; TEMP 36.8; O2SAT 96
[2025-05-26 04:00] VITALS: BP 127/67; PULSE 78; RESP 18; TEMP 36.4; O2SAT 97
[2025-05-26 08:00] VITALS: BP 152/78; PULSE 78; RESP 18; TEMP 36.2; O2SAT 99
[2025-05-26 12:00] VITALS: BP 121/64; PULSE 78; RESP 18; TEMP 36.3; O2SAT 100
[2025-05-26 16:00] VITALS: BP_SYST 121; BP_SYST 130; BP_DIAS 64; BP_DIAS 72; PULSE 78; PULSE 88; RESP 18; TEMP 36.3; TEMP 36.5; O2SAT 100
[2025-05-26 20:00] VITALS: BP 148/73; PULSE 80; RESP 18; TEMP 36.6; O2SAT 98
[2025-05-27] VITALS: BP 139/65; PULSE 71; RESP 20; TEMP 36.6; O2SAT 95
[2025-05-27 04:00] VITALS: BP 131/62; PULSE 77; RESP 19; TEMP 36.7; O2SAT 98
[2025-05-27 08:00] VITALS: BP 174/81; PULSE 77; RESP 17; TEMP 36.4; O2SAT 95
[2025-05-27 12:00] VITALS: BP 180/90; PULSE 79; RESP 17; TEMP 36.4; O2SAT 99
[2025-05-27 16:00] VITALS: BP 182/95; PULSE 80; RESP 18; TEMP 36.5; O2SAT 97
[2025-05-27] MEDS: CLOTRIMAZOLE 1% CREAM 15GM TOP SCH (18:00)
[2025-05-27 20:00] VITALS: BP 160/88; PULSE 89; RESP 18; TEMP 36.8; O2SAT 100
[2025-05-27] MEDS: AMLODIPINE 5MG TABLET PO SCH (20:42)
[2025-05-28] VITALS: BP 138/74; PULSE 78; RESP 18; TEMP 37.1; O2SAT 98
[2025-05-28 04:00] VITALS: BP 123/74; PULSE 69; RESP 18; TEMP 36.6; O2SAT 97
[2025-05-28] MEDS: ENOXAPARIN 30MG/0.3ML SYR SUBCUT SCH (09:00)
[2025-05-28] MEDS: CLOTRIMAZOLE 1% CREAM 15GM TOP SCH (09:22)
[2025-05-28 11:06] VITALS: BP 128/63; PULSE 90; RESP 18; TEMP 97.3
[2025-05-28 11:09] VITALS: BP 128/63; PULSE 90; RESP 18; TEMP 36.3; O2SAT 100
== END 2025-05-28 14:29 | DRG 853 ==
LOC: ER 08:26 → 7WST 09:18 → EDBEDREQ 09:25 → EDBEDREQTM 09:25 → EDBEDREQ 10:29 → EDBEDREQTM 10:29 → EDBEDREQ 10:31 → 6EST 05-25 18:31
PROVIDERS: ADMIT Internal Medicine; ATTEND Internal Medicine
PROC: 0Y6C0Z3 Detachment at Right Upper Leg, Low, Open Approach (ICD-10-PCS; principal; 2025-05-14)
PROC: 30233N1 Transfusion of Nonautologous Red Blood Cells into Peripheral Vein, Percutaneous Approach (ICD-10-PCS; 2025-05-14)
DX: A41.9 Sepsis, unspecified organism (principal); A48.0 Gas gangrene; L89.153 Pressure ulcer of sacral region, stage 3; N17.0 Acute kidney failure with tubular necrosis; G92.8 Other toxic encephalopathy; E87.0 Hyperosmolality and hypernatremia; E11.52 Type 2 diabetes mellitus with diabetic peripheral angiopathy with gangrene; B35.1 Tinea unguium; D75.838 Other thrombocytosis; M86.171 Other acute osteomyelitis, right ankle and foot; F03.90 Unspecified dementia, unspecified severity, without behavioral disturbance, psychotic disturbance, mood disturbance, and anxiety; I12.9 Hypertensive chronic kidney disease with stage 1 through stage 4 chronic kidney disease, or unspecified chronic kidney disease; E03.9 Hypothyroidism, unspecified; G40.909 Epilepsy, unspecified, not intractable, without status epilepticus; F20.9 Schizophrenia, unspecified; G93.89 Other specified disorders of brain; D50.9 Iron deficiency anemia, unspecified; L97.814 Non-pressure chronic ulcer of other part of right lower leg with necrosis of bone; E11.22 Type 2 diabetes mellitus with diabetic chronic kidney disease; E11.621 Type 2 diabetes mellitus with foot ulcer; E11.69 Type 2 diabetes mellitus with other specified complication; Z20.822 Contact with and (suspected) exposure to COVID-19; E86.0 Dehydration; E87.6 Hypokalemia; N18.2 Chronic kidney disease, stage 2 (mild); E86.1 Hypovolemia; R32 Unspecified urinary incontinence; B07.9 Viral wart, unspecified; B35.3 Tinea pedis; E78.5 Hyperlipidemia, unspecified; L22 Diaper dermatitis; L84 Corns and callosities; Z55.6 Problems related to health literacy; Z79.899 Other long term (current) drug therapy; Z91.148 Patient's other noncompliance with medication regimen for other reason
CPT/HCPCS: 36415; 36600; 71045; 73620; 73700; 76770; 80048; 80076; 80202; 80305; 80320; 81003; 82375; 82550; 82805; 82962; 83036; 83605; 83735; 84100; 84145; 84484; 85025; 85651; 86141; 86850; 86900; 86920; 87070; 87077; 87186; 87426; 88307; 88311; 92610; 93005; 93923; 93970; 94070; 94640; 94664; 97166; 99291; A4606; J0665; J1100; J1171; J1650; J1815; J1953; J2004; J2371; J2405; J2470; J2543; J2704; J3010; J3373; J3480; J3490; J7030; J7060; J7070; P9016; G0480; J0131